=== PATIENT | male | born 1995 | race Caucasian/White ===

== ENCOUNTER → 2017-10-09 17:35 | Outpatient (CLI) | payer OTHER, SELFPAY ==
--- NOTE | 2017-10-09 17:41 | DI.RAD.S_ITS ---
PROCEDURE: XR FOOT LT MIN 3V INDICATIONS: 22 year-old female with fifth toe and forefoot pain after injury. TECHNIQUE: 3 views of the foot were acquired. COMPARISON: None. FINDINGS: Bones: No fractures or dislocations. No suspicious bony lesions. Soft tissues: No tibiotalar joint effusion. Achilles tendon appears normal. IMPRESSION: No acute bony injuries of the left foot. Dictated by: Alejandro Klein M.D. on 10/10/2017 at 7:37 Approved by: Alejandro Klein M.D. on 10/10/2017 at 7:38
== END ==
PROVIDERS: Family Provider Family Medicine; PCP Family Medicine; Visit Provider Family Medicine
DX: M79.672 Pain in left foot (principal); M79.675 Pain in left toe(s)
CPT/HCPCS: 73630

== ENCOUNTER → 2021-02-14 13:27 | Outpatient (CLI) | payer OTHER, MEDICAID, SELFPAY ==
--- NOTE | 2021-02-14 13:29 | DI.RAD.S_ITS ---
PROCEDURE: XR FINGER RT MIN 2V INDICATIONS: Finger pain TECHNIQUE: AP hand, 2 views of the right 3rd finger(s) acquired. COMPARISON: None. FINDINGS: Bones: No fractures or dislocations. No suspicious bony lesions. Soft tissues: No suspicious soft tissue calcifications. IMPRESSION: No osseous lesion. If symptoms and/or clinical suspicion for pathology persists, further assessment with repeat radiographs (7-10 days) or advanced imaging (e.g. CT, MRI or bone scan) should be considered. Dictated by: Dianne Lnada MD, PhD on 02/14/2021 at 15:59 Approved by: Dianne Landa MD, PhD on 02/14/2021 at 16:00
== END ==
PROVIDERS: Family Provider Family Medicine; PCP Family Medicine; Referring Provider Nurse Practitioner Family; Visit Provider Nurse Practitioner Family
DX: M79.644 Pain in right finger(s) (principal)
CPT/HCPCS: 73140

== ENCOUNTER → 2021-04-02 10:08 | Outpatient (CLI) | payer OTHER, MEDICAID, SELFPAY ==
--- NOTE | 2021-04-02 10:09 | DI.MRI.S_ITS ---
PROCEDURE: MR HAND RT WO CON INDICATIONS: pain and swelling of right third digit TECHNIQUE: Noncontrast coronal T1 spin echo and T2 fast spin echo with fat saturation, axial proton density fast spin echo and T2 fast spin echo with fat saturation, sagittal T1 spin echo and STIR through the hand and fingers. COMPARISON: None. FINDINGS: Image quality: Excellent. Bones: The bones are normally aligned, without marrow contusions or fractures. No intra-osseous lesions. Interphalangeal joint(s): The accessory and proper collateral ligaments appear intact. The volar plate demonstrates normal morphology. The extensor central slips appear intact on sagittal images. Metacarpophalangeal joint(s): The accessory and proper collateral ligaments appear intact, as well as the volar plate and adjacent deep transverse metacarpal ligaments. The sagittal bands of the extensor zuluaga appear normal. Extensor apparatus: The central slips insert normally on the middle phalangeal base. The conjoint and terminal tendons insert normally on the distal phalangeal bases. More proximal portions of the extensor tendons also appear normal. Flexor apparatus: The flexor digitorum superficialis and profundus tendons both appear intact. All annular and cruciform pulleys appear intact, without adjacent soft tissue edema. Soft tissues: Visualized muscles demonstrate normal bulk and internal signal. No intramuscular masses identified. An 8.3 x 6.6 mm T2 /T1 hypointense lesion is seen along the dorsal aspect of the flexor compartment (series 6, image 55), which may reflect a small ganglion. No abnormal signal in the 3rd digit subcutaneous soft tissue to reflect edema/cellulitis. IMPRESSION: 1. Suggestion of a small ganglion along the dorsal aspect of the flexor compartment as detailed above. Dictated by: Jd Fountain M.D. on 04/04/2021 at 9:09 Approved by: Jd Fountain M.D. on 04/04/2021 at 9:18
== END ==
PROVIDERS: Family Provider Family Medicine; PCP Family Medicine; Referring Provider Family Medicine; Visit Provider Family Medicine
DX: M79.644 Pain in right finger(s) (principal); M79.89 Other specified soft tissue disorders
CPT/HCPCS: 73218

== ENCOUNTER → 2022-02-02 17:28 | Outpatient (CLI) | payer OTHER, MEDICAID, SELFPAY ==
--- NOTE | 2022-02-02 17:32 | DI.RAD.S_ITS ---
PROCEDURE: XR FOOT RT MIN 3V INDICATIONS: Right foot swelling TECHNIQUE: 3 views of the foot were acquired. COMPARISON: [facility], CR, XR FOOT LT MIN 3V, 10/09/2017, 17:20. FINDINGS: Bones: No fractures or dislocations. No suspicious bony lesions. Soft tissues: No tibiotalar joint effusion. Achilles tendon appears normal. IMPRESSION: No right foot fracture or dislocation. No gross soft tissue abnormalities. Dictated by: Esteban Vargas M.D. on 02/02/2022 at 18:48 Approved by: Esteban Vargas M.D. on 02/02/2022 at 18:49
== END ==
PROVIDERS: Family Provider Family Medicine; PCP Family Medicine; Referring Provider Nurse Practitioner Family; Visit Provider Nurse Practitioner Family
DX: M79.89 Other specified soft tissue disorders (principal)
CPT/HCPCS: 73630

== ENCOUNTER → 2022-05-09 16:01 | Outpatient (CLI) | payer OTHER, MEDICAID, SELFPAY ==
[2022-05-11 21:40] LABS: Aspergillus fumigatus IgE <0.10 kU/L (Class 0)
== END ==
PROVIDERS: Family Provider Family Medicine; PCP Family Medicine; Referring Provider Family Medicine; Visit Provider Family Medicine
DX: G43.109 Migraine with aura, not intractable, without status migrainosus (principal); Z77.120 Contact with and (suspected) exposure to mold (toxic)
CPT/HCPCS: 36415; 86003